=== PATIENT | male | born 1965 | race Caucasian/White ===

== ENCOUNTER 2021-05-05 18:42 | Observation (INO) ==
[2021-05-05] MEDS ORDERED: Ondansetron 4 MG/2 ML VIAL IVP ONE (19:11)
[2021-05-05] MEDS ORDERED: 0.9 % Sodium Chloride 1,000 ML IVC ONE (19:11)
[2021-05-05] MEDS ORDERED: Isovue-370 500 ML BOTTLE IVP ONE (19:14)
[2021-05-05 19:46] LABS: Basophils % 0.4 %; Immature Granulocytes % 0.6 % (0-4); Red Cell Distribution Width 12.9 % (11.5-14.5)
[2021-05-05 19:48] LABS: Eosinophils # 0.1 K/mcL (0.0-0.6); Eosinophils % 1.2 %; Hematocrit 42.9 % (37.5-50.1); Hemoglobin 14.7 g/dL (12.9-16.9); Immature Platelets 5.9 % (1.1-6.1); Lymphocytes # 0.8 K/mcL (0.6-4.6); Lymphocytes % 16.5 %; Mean Corpuscular HGB Conc 34.3 g/dL (31.6-35.5); Mean Corpuscular Hemoglobin 30.9 pg (28.0-33.3); Mean Corpuscular Volume 90.3 fL (83.0-100.0); Mean Platelet Volume 11.3 fL (9.4-12.4); Monocytes # 0.6 K/mcL (0.0-1.3); Monocytes % 11.7 %; Neutrophils # 3.5 K/mcL (1.6-8.9); Red Blood Count 4.75 M/mcL (4.19-5.50); Segmented Neutrophils % 69.6 %
[2021-05-05 20:04] LABS: Platelet Count 82 K/mcL (140-400)
[2021-05-05 20:08] LABS: Alanine Aminotransferase 19 Units/L (7-52); Albumin 4.2 g/dL (3.5-5.7); Albumin/Globulin Ratio 1.7 (1.1-2.2); Alkaline Phosphatase 56 Units/L (34-104); Aspartate Amino Transferase 29 Units/L (13-39); BUN/Creatinine Ratio 15 (6-26); Bilirubin,Total 0.9 mg/dL (0.3-1.0); Blood Urea Nitrogen 14 mg/dL (6-20); Calcium 9.1 mg/dL (8.6-10.3); Carbon Dioxide 26 mEq/L (23-29); Chloride 105 mEq/L (98-107); Creatine Kinase 540 Units/L (30-223); Ethanol < 10 mg/dL (Less than 10); Globulin 2.5 g/dL (2.4-3.5); Glucose 130 mg/dL (70-105); Magnesium 1.9 mg/dL (1.6-2.6); Osmolality,Calculated 290 (280-300); Potassium 3.7 mEq/L (3.5-5.1); Sodium 139 mEq/L (136-145); Total Protein 6.7 g/dL (6.4-8.9); Troponin I < 0.03 ng/mL (< 0.04); eGFR For African Americans > 60 (> 60); eGFR For Non-African Americans > 60 (> 60)
[2021-05-05 20:24] LABS: Bilirubin,Urine Negative (Negative); Blood,Urine Negative (Negative); Clarity,Urine Clear (Clear); Color,Urine Yellow (Yellow); Glucose,Urine (UA) 50 mg/dL (Normal); Ketones,Urine Negative (Negative); Leukocyte Esterase,Urine Negative (Negative); Mucus,Urine Few per lpf (None-Few); Nitrite,Urine Negative (Negative); PH,Urine 5.5 pH Units (5.0-8.0); Protein,Urine Trace mg/dL (Neg-Trace); RBC,Urine 0-3 per hpf (0-3); Specific Gravity,Urine 1.025 (1.010-1.025); Urobilinogen,Urine Normal (Normal); WBC,Urine 0-3 per hpf (0-3)
[2021-05-05 20:26] LABS: INR 1.1
[2021-05-05 20:28] LABS: Activated Partial Thrombo Time 30.6 Seconds (26.0-36.0)
[2021-05-05 20:33] LABS: Amphetamine Screen,Urine Negative ng/mL (Cutoff=1000); Barbiturate Screen,Urine Negative ng/mL (Cutoff=200); Benzodiazepines Screen,Urine Negative ng/mL (Cutoff=200); Cannabinoid Screen,Urine Negative ng/mL (Cutoff = 50); Cocaine Screen,Urine Negative ng/mL (Cutoff= 300); Opiate Screen,Urine Negative ng/mL (Cutoff=300); Phencyclidine Screen,Urine Negative ng/mL (Cutoff=25)
[2021-05-05 23:28] LABS: C-Reactive Protein 7 mg/L (Less than 10)
[2021-05-05] MEDS ORDERED: Ondansetron 4 MG/2 ML VIAL IVP PRN (23:59)
[2021-05-05] MEDS ORDERED: Naloxone 0.4 MG/ML INJ IVP PRN (23:59)
[2021-05-05] MEDS ORDERED: Acetaminophen 325 MG TABLET PO PRN (23:59)
[2021-05-06] MEDS: 0.9 % Sodium Chloride 1,000 ML IVC SCH ×2 (00:55→08:56)
[2021-05-06] MEDS ORDERED: D5% in Water 1,000 ML IVC PRN (01:01)
[2021-05-06] MEDS ORDERED: *HR* Dextrose 50 % in Water (Vial) 50 ML VIAL IVP PRN (01:01)
[2021-05-06] MEDS ORDERED: Dextrose Gel 15 GM/37.5 ML TUBE PO PRN ×2 (01:01)
[2021-05-06 01:12] LABS: Red Cell Distribution Width 12.9 % (11.5-14.5)
[2021-05-06 01:13] LABS: Hematocrit 40.5 % (37.5-50.1); Hemoglobin 13.8 g/dL (12.9-16.9); Immature Platelets 5.7 % (1.1-6.1); Mean Corpuscular HGB Conc 34.1 g/dL (31.6-35.5); Mean Corpuscular Hemoglobin 31.3 pg (28.0-33.3); Mean Corpuscular Volume 91.8 fL (83.0-100.0); Mean Platelet Volume 11.3 fL (9.4-12.4); Red Blood Count 4.41 M/mcL (4.19-5.50); White Blood Count 4.8 K/mcL (4.3-11.1)
[2021-05-06 02:02] LABS: Folate 10.2 ng/mL (3.0-16.0)
[2021-05-06 03:06] LABS: Alanine Aminotransferase 14 Units/L (7-52); Albumin 3.7 g/dL (3.5-5.7); Albumin/Globulin Ratio 1.9 (1.1-2.2); Alkaline Phosphatase 48 Units/L (34-104); Aspartate Amino Transferase 27 Units/L (13-39); BUN/Creatinine Ratio 17 (6-26); Bilirubin,Total 0.6 mg/dL (0.3-1.0); Blood Urea Nitrogen 15 mg/dL (6-20); Calcium 8.2 mg/dL (8.6-10.3); Carbon Dioxide 23 mEq/L (23-29); Chloride 107 mEq/L (98-107); Chol/HDL Ratio 2.3 (0-4.9); Cholesterol 80 mg/dL (< 200); Creatine Kinase 404 Units/L (30-223); Glucose 135 mg/dL (70-105); HDL Cholesterol 35 mg/dL (40-59); LDL Cholesterol,Calculated 32 mg/dL (< 100); Osmolality,Calculated 287 (280-300); Potassium 4.1 mEq/L (3.5-5.1); Sodium 137 mEq/L (136-145); Total Protein 5.7 g/dL (6.4-8.9); Triglycerides 66 mg/dL (< 150); eGFR For African Americans > 60 (> 60); eGFR For Non-African Americans > 60 (> 60)
[2021-05-06 03:46] LABS: Estimated Average Glucose 123 mg/dl; Hemoglobin A1C 5.9 %
[2021-05-06] MEDS: *HR* Heparin 5,000 UNIT/ML VIAL SQ SCH ×2 (07:46→18:44)
[2021-05-06] MEDS: Insulin LISPRO 300 UNITS/3 ML VIAL SUBQ SCH ×3 (11:16→19:43)
[2021-05-06] MEDS ORDERED: Insulin LISPRO 300 UNITS/3 ML VIAL SUBQ SCH (21:00)
[2021-05-07 04:20] VITALS: BP 121/72; PULSE 65; TEMP 98; O2SAT 99
[2021-05-07] MEDS: *HR* Heparin 5,000 UNIT/ML VIAL SQ SCH (05:58)
== END 2021-05-07 09:22 | disposition home or self-care (01) ==
LOC: 3NENU 18:42 → EMEROOARM 18:42 → SUATTDRO 22:03 → 3NENU 22:41
PROVIDERS: ADMIT Internal Medicine; ATTEND Internal Medicine